=== PATIENT | female | born 1940 | race Two or more races ===

== ENCOUNTER 2024-10-21 19:38 | Emergency (ER) | payer OTHER ==
[~2024-10-21] VITALS: Ht 152.4 cm; Wt 68.0 kg
[2024-10-22] MEDS ORDERED: DEXAMETHASONE 4 MG TABLET PO STA (00:20)
[2024-10-22] MEDS ORDERED: ORPHENADRINE CITRATE 30 MG/ML AMPUL IM STA (00:20)
== END 2024-10-22 01:42 | disposition home or self-care (01) ==
LOC: ER 19:40
DX: M62.830 Muscle spasm of back (principal); M54.50 Low back pain, unspecified; Z88.6 Allergy status to analgesic agent
CPT/HCPCS: 72100; 73502; 96372; 99283; J2360

== ENCOUNTER 2025-02-18 11:13 | Outpatient (CLI) | payer OTHER | END 2025-02-18 11:20 | disposition home or self-care (01) | LOC: RAD 11:13 | PROVIDERS: ATTEND Physical Medicine & Rehabilitation | DX: M54.59 Other low back pain (principal) ==